=== PATIENT | male | born 1965 | race Caucasian/White ===

== ENCOUNTER 2020-11-21 12:51 | Emergency (ER) | payer OTHER, SELFPAY ==
[2020-11-21 13:15] VITALS: BP 143/89; PULSE 97; RESP 18; TEMP 36.8; O2SAT 97
--- NOTE | 2020-11-21 13:22 | ED.URI ---
HPI - URI/Sore Throat General Chief Complaint: Upper Respiratory Infection Stated Complaint: Sore Throat/Body Aches Time Seen by Provider: 11/21/20 13:24 Source: patient, RN notes reviewed and old records reviewed Mode of arrival: ambulatory Limitations: no limitations History of Present Illness HPI Narrative: 55 year old male who presents to [facility] with complaints of sore scratchy throat for the past 2 days. States his symptoms started after receiving his 2nd COVID vaccination. Patient also states some sinus drainage and congestion, and cough, states history of sinusitis and allergies.He reports that he took 3 of left over Augmentin that he had at home. Patient is immunocompromised with history of Rheumatoid arthritis for which he takes Humira weekly injections. Patient states that he is concerned because he travels frequently and is getting ready to go on business trip next week. He reports that he did have COVID in July of 2020. MD elicited complaint: sore throat Pertinent past history: sinusitis, seasonal allergies and immunosuppression Onset (ago): day(s) (4) Consistency: progressively worsening Severity: moderate Pain scale (0-10): 5 Description of mucous: clear Able to tolerate fluids by mouth: Yes Exacerbating factors: swallowing Relieving factors: nothing Associated symptoms: rhinorrhea, nasal congestion and cough Treatments prior to arrival: antibiotics (3 tabs of left over Augmentin) Related Data Home Medications Medication Instructions Recorded Confirmed adalimumab 10 mg/0.2 mL 10 mg SUB-Q WEEKLY each 07/18/19 subcutaneous syringe kit amlodipine 2.5 mg tablet 2.5 mg PO DAILY 07/18/19 adalimumab [Humira Pen] 40 mg SUBCUT ONCE 11/21/20 11/21/20 alprazolam 11/21/20 amlodipine-benazepril cap 11/21/20 estazolam mg 11/21/20 Allergies Allergy/AdvReac Type Severity Reaction Status Date / Time No Known Drug Allergies Allergy Unknown none Verified 07/18/19 13:59 Review of Systems Review of Systems: Narrative: CONSTITUTIONAL: Denies fever, chills, or sweats. EYES: Denies visual changes, redness, or discharge. ENT: Positive for rhinorrhea, congestion, sore throat, no otalgia. CARDIOVASCULAR: Denies chest pain, palpitations, or edema. RESPIRATORY: Positive cough denies dyspnea. GASTROINTESTINAL: Denies abdominal pain, nausea, vomiting, or diarrhea. GENITOURINARY: Denies dysuria or hematuria. SKIN: Denies rash or itching, has abrasion MUSCULOSKELETAL: Denies back pain,acute joint pain, or myalgia NEUROLOGIC: Denies headache, numbness, or weakness. PSYCHIATRIC: Denies anxiety or depression. All systems reviewed & are unremarkable except as noted in HPI and below PMFSH Past Medical History Medical History (Updated 11/23/20 @ 15:35 by Geraldine Jeffries NP) History of rheumatoid arthritis Hypertension Surgical History Surgical History (Updated 11/21/20 @ 13:43 by Geraldine Jeffries NP) H/O nasal septoplasty History of tonsillectomy and adenoidectomy Family History Family History (Updated 07/18/19 @ 14:01 by Aleena Caraballo) Other Hypertension Social History Social History (Updated 11/23/20 @ 15:35 by Geraldine Jeffries NP) Smoking status: Never smoker Alcohol intake: current Substance use: never Living arrangements: with family Gender identity (if verbalized by the patient): Male Comments At time of signature, agree with nursing past medical, surgical, social and family history. There is no relevant family history pertinent to the presenting complaint Exam Narrative: Exam Narrative: GENERAL: Well-appearing, well-nourished, and in no acute distress. HEAD: Normocephalic, atraumatic. EYES: PERRLA and EOMI. ENT: Nares red with clear rhinorrhea no epistaxis. Mucous membranes moist.TM's normal with good light reflex, throat red with no lesions or exudates, no tonsils, post nasal drainage present NECK: Supple.no lymphadenopathy CHEST: Clear to auscultation. No respiratory distr
== END 2020-11-21 13:45 | disposition home or self-care (01) ==
PROVIDERS: Emergency Provider Registered Nurse; PCP Internal Medicine
DX: J02.9 Acute pharyngitis, unspecified (principal); M06.9 Rheumatoid arthritis, unspecified; I10 Essential (primary) hypertension
CPT/HCPCS: 87081; 87880; 99213; G0463

== ENCOUNTER 2021-03-13 16:10 | Emergency (ER) | payer OTHER, SELFPAY ==
[2021-03-13 16:15] VITALS: BP 146/89; PULSE 85; RESP 16; TEMP 37.1; O2SAT 99
--- NOTE | 2021-03-13 16:55 | ED.EAR ---
HPI - Ear Problem General Chief complaint: Ear Stated complaint: ear pain Time Seen by Provider: 03/13/21 16:45 Source: patient, RN notes reviewed and old records reviewed Mode of arrival: ambulatory Limitations: no limitations History of Present Illness HPI Narrative: 56-year-old male who presents to [facility] with complaints of left ear pain for the past 2 days. Patient states that he has been swimming a lot and has had history of swimmer's ear in the past. Patient states that ear canal is very sore, has not noted any drainage from his left ear. Patient denies any fever, chills or sweats or any sinus congestion. MD Complaint: ear pain Location: left ear Duration: constant Context: Reports recent swimming Discharge from ear: Reports no Associated symptoms ear: rhinorrhea and other (Ear pain) Treatment prior to arrival: none Related Data Home Medications Medication Instructions Recorded Confirmed adalimumab 10 mg/0.2 mL 10 mg SUB-Q WEEKLY each 07/18/19 03/13/21 subcutaneous syringe kit amlodipine 2.5 mg tablet 2.5 mg PO DAILY 07/18/19 03/13/21 adalimumab [Humira Pen] 40 mg SUBCUT ONCE 11/21/20 03/13/21 alprazolam 11/21/20 amlodipine-benazepril cap 11/21/20 estazolam mg 11/21/20 Allergies Allergy/AdvReac Type Severity Reaction Status Date / Time No Known Drug Allergies Allergy Unknown none Verified 03/13/21 16:56 Review of Systems Review of Systems: Narrative: CONSTITUTIONAL: Denies fever, chills, or sweats. EYES: Denies visual changes, redness, or discharge. ENT: Denies rhinorrhea, congestion, sore throat, positive for left otalgia. CARDIOVASCULAR: Denies chest pain, palpitations, or edema. RESPIRATORY: Denies cough or dyspnea. GASTROINTESTINAL: Denies abdominal pain, nausea, vomiting, or diarrhea. GENITOURINARY: Denies dysuria or hematuria. SKIN: Denies rash or itching. MUSCULOSKELETAL: Denies back pain, joint pain, or myalgia. NEUROLOGIC: Denies headache, numbness, or weakness. PSYCHIATRIC: Denies anxiety or depression. All systems reviewed & are unremarkable except as noted in HPI and below PMFSH Past Medical History Medical History (Updated 03/13/21 @ 17:00 by Geraldine Jeffries NP) History of rheumatoid arthritis Hypertension Surgical History Surgical History (Updated 11/21/20 @ 13:43 by Geraldine Jeffries NP) H/O nasal septoplasty History of tonsillectomy and adenoidectomy Family History Family History (Updated 07/18/19 @ 14:01 by Aleena Caraballo) Other Hypertension Social History Social History (Updated 11/23/20 @ 15:35 by Geraldine Jeffries NP) Smoking status: Never smoker Alcohol intake: current Substance use: never Gender identity (if verbalized by the patient): Male Comments At time of signature, agree with nursing past medical, surgical, social and family history. There is no relevant family history pertinent to the presenting complaint Exam Narrative: Exam Narrative: GENERAL: Well-appearing, well-nourished, and in no acute distress. HEAD: Normocephalic, atraumatic. EYES: PERRLA and EOMI. ENT: Nares clear, no rhinorrhea or epistaxis. Mucous membranes moist.Right TM normal with good light reflex, Left TM has good light reflex, canal is red swollen and excoriated with lesion noted mid way in canal NECK: Supple. no lymphadenopathy CHEST: Clear to auscultation. No respiratory distress.SAO2 99% on room air HEART: Regular rate and rhythm. No murmur heard. Normal peripheral pulses. ABDOMEN: Soft, nontender, nondistended, normal active bowel sounds. EXTREMITIES: Normal range of motion. No edema. SKIN: Warm, dry, no rash. NEURO: No focal deficits. Alert and oriented x3. Course Vital Signs Vital signs: Vital Signs Temperature 37.1 C 03/13/21 16:15 Pulse Rate 85 03/13/21 16:15 Respiratory Rate 16 03/13/21 16:15 Blood Pressure 146/89 H 03/13/21 16:15 Pulse Oximetry 99 03/13/21 16:15 Temperature 37.1 C 03/13/21 16:15 Pulse Rate 85 03/13
== END 2021-03-13 17:20 | disposition home or self-care (01) ==
PROVIDERS: Emergency Provider Registered Nurse; PCP Internal Medicine
DX: H60.332 Swimmer's ear, left ear (principal); I10 Essential (primary) hypertension; M06.9 Rheumatoid arthritis, unspecified
CPT/HCPCS: 99213; G0463

== ENCOUNTER 2022-01-22 13:28 | Emergency (ER) | payer OTHER, SELFPAY ==
[2022-01-22 13:36] VITALS: BP 141/84; PULSE 77; RESP 18; TEMP 36.6; O2SAT 98
--- NOTE | 2022-01-22 14:31 | ED.URI ---
HPI - URI/Sore Throat General Chief Complaint: Upper Respiratory Infection Stated Complaint: headache nose and sinus Time Seen by Provider: 01/22/22 14:31 Source: patient Mode of arrival: ambulatory Limitations: no limitations History of Present Illness HPI Narrative: 56-year-old male who presents to [facility] care with complaints of 2 week duration of sinus congestion, sinus pressure, frontal headache, sneezing and occasional dry cough. Patient reports that he has been using Afrin nasal spray to clear his nose that he has been so stuffed up, Flonase not seeming to help and also he has been taking some Advil for his discomfort. Patient denies any known fevers, chills or sweats. Patient has had COVID vaccinations and also flu shot. MD elicited complaint: cough, rhinorrhea (headache), nasal congestion, sinus pain and other (headache) Pertinent past history: sinusitis and other (nasal septal surgery and tonsillectomy) Onset (ago): week(s) (2) Related Data Home Medications Medication Instructions Recorded Confirmed amlodipine 2.5 mg tablet 2.5 mg PO DAILY 07/18/19 01/22/22 adalimumab 40 mg/0.8 mL 40 mg subcut ONCE 11/21/20 03/13/21 subcutaneous pen kit (Humira Pen) alprazolam 0.5 mg tablet 0.5 mg PO DAILY PRN Anxiety 11/21/20 estazolam 2 mg tablet 2 mg PO DAILY 11/21/20 tramadol 50 mg tablet 50 mg PO DAILY 01/22/22 01/22/22 Allergies Allergy/AdvReac Type Severity Reaction Status Date / Time No Known Drug Allergies Allergy Unknown none Verified 01/22/22 14:23 Review of Systems Review of Systems: CONSTITUTIONAL: Denies fever, chills, or sweats. EYES: Denies visual changes, redness, or discharge. ENT: Positive for rhinorrhea, congestion,no sore throat, or otalgia. CARDIOVASCULAR: Denies chest pain, palpitations, or edema. RESPIRATORY: Dry cough denies dyspnea. GASTROINTESTINAL: Denies abdominal pain, nausea, vomiting, or diarrhea. GENITOURINARY: Denies dysuria or hematuria. SKIN: Denies rash or itching. MUSCULOSKELETAL: Denies back pain, joint pain, or myalgia. NEUROLOGIC: Positive for frontal headache, no numbness, or weakness. PSYCHIATRIC: Positive for history of anxiety or depression. PMFSH Past Medical History Medical History (Updated 01/24/22 @ 09:51 by Geraldine Jeffries NP) Anxiety History of rheumatoid arthritis Hypertension Sinusitis Surgical History Surgical History (Updated 11/21/20 @ 13:43 by Geraldine Jeffries NP) H/O nasal septoplasty History of tonsillectomy and adenoidectomy Family History Family History (Updated 07/18/19 @ 14:01 by Aleena Caraballo) Other Hypertension Social History Social History (Updated 01/23/22 @ 22:36 by Geraldine Jeffries NP) Smoking status: Never smoker Alcohol intake: current Substance use: never Living arrangements: with family Gender identity (if verbalized by the patient): Male Comments At time of signature, agree with nursing past medical, surgical, social and family history. There is no relevant family history pertinent to the presenting complaint Exam Narrative: GENERAL: Well-appearing, well-nourished, and in no acute distress. HEAD: Normocephalic, atraumatic. EYES: PERRLA and EOMI. ENT: Nares red and membranes swollen no epistaxis. Mucous membranes moist. TMs normal with good light reflex, throat red with no lesions or exudates, tonsils absent, post nasal drainage. NECK: Supple.no lymphadenopathy CHEST: Clear to auscultation. No respiratory distress.SAO2 98% on room air, dry cough HEART: Regular rate and rhythm. No murmur heard. Normal peripheral pulses. ABDOMEN: Soft, nontender, nondistended, normal active bowel sounds. EXTREMITIES: Normal range of motion. No edema. SKIN: Warm, dry, no rash. NEURO: No focal deficits. Alert and oriented x3. Course Course Level of Care: Express Care Visit Vital Signs Vital signs: Vital Signs Temperature 36.6 C 01/22/22 13:36 Pulse Rate 77 01/22/22 13:36 Respiratory Rate 18 01/22/22 13:36
== END 2022-01-22 14:46 | disposition home or self-care (01) ==
PROVIDERS: Emergency Provider Registered Nurse; PCP Internal Medicine
DX: J32.9 Chronic sinusitis, unspecified (principal); I10 Essential (primary) hypertension; F41.9 Anxiety disorder, unspecified
CPT/HCPCS: 99213; G0463

== ENCOUNTER 2022-09-01 13:59 | Emergency (ER) | payer OTHER, SELFPAY ==
[2022-09-01 14:03] VITALS: BP 146/86; PULSE 76; RESP 16; TEMP 36.7; O2SAT 97
--- NOTE | 2022-09-01 14:10 | ED.URI ---
HPI - URI/Sore Throat General Chief Complaint: Upper Respiratory Infection Stated Complaint: sore throat Time Seen by Provider: 09/01/22 14:05 Source: patient and RN notes reviewed History of Present Illness HPI Narrative: Patient is a 57-year-old male who presents to urgent care with complaints of sore throat, runny nose and cough for 2 days. Patient states that he has been using NyQuil for symptoms as well as a humidifier at night. Denies any fever, nausea or vomiting. No other acute complaints. No acute distress noted. Patient aware of the plan of care. Some parts of this dictation were generated by voice recognition software and may contain typographical and/or grammatical inaccuracies. Related Data Home Medications Medication Instructions Recorded Confirmed adalimumab 40 mg/0.8 mL 40 mg subcut ONCE 11/21/20 03/13/21 subcutaneous pen kit (Humira Pen) alprazolam 0.5 mg tablet 0.5 mg PO DAILY PRN Anxiety 11/21/20 estazolam 2 mg tablet 2 mg PO DAILY 11/21/20 amlodipine 10 mg-benazepril 20 mg 1 cap PO DAILY 09/01/22 09/01/22 capsule metoprolol tartrate 25 mg tablet 25 mg PO BID 09/01/22 09/01/22 Allergies Allergy/AdvReac Type Severity Reaction Status Date / Time No Known Drug Allergies Allergy Unknown none Verified 09/01/22 14:10 Review of Systems Review of Systems: CONSTITUTIONAL: Denies fever, chills, or sweats. EYES: Denies visual changes, redness, or discharge. ENT: Reports rhinorrhea, sore throat CARDIOVASCULAR: Denies chest pain, palpitations, or edema. RESPIRATORY: reports of cough GASTROINTESTINAL: Denies abdominal pain, nausea, vomiting, or diarrhea. GENITOURINARY: Denies dysuria or hematuria. SKIN: Denies rash or itching. MUSCULOSKELETAL: Denies back pain, joint pain, or myalgia. NEUROLOGIC: Denies headache, numbness, or weakness. All other systems reviewed are negative, except as documented in HPI. [facility] Past Medical History Medical History (Updated 09/01/22 @ 14:21 by ANALI Mcclure) Anxiety History of rheumatoid arthritis Hypertension Sinusitis Surgical History Surgical History (Updated 11/21/20 @ 13:43 by Geraldine Jeffries NP) H/O nasal septoplasty History of tonsillectomy and adenoidectomy Family History Family History (Updated 07/18/19 @ 14:01 by Aleena Caraballo) Other Hypertension Social History Social History (Updated 01/23/22 @ 22:36 by Geraldine Jeffries NP) Smoking status: Never smoker Alcohol intake: current Substance use: never Gender identity (if verbalized by the patient): Male Comments At the time of my signature, I reviewed and agree with the nursing past medical, surgical, social, and family history. There is no relevant family history pertinent to the patient complaint. Exam Narrative: GENERAL: This is a well-nourished, well-developed patient, in no apparent distress. HEAD: normocephalic, atraumatic. EYES: PERRL. Sclera clear/white. Vision is grossly intact. EARS: External ears normal, auditory canals clear and without drainage, TMs normal without perforation. Hearing grossly intact. NOSE: External nose normal with no obvious nasal discharge, nares without redness, Clear rhinorrhea. THROAT: Mucous membranes moist. mild erythema to posterior pharynx with moderate postnasal drainage. NECK: Neck supple, non-tender without lymphadenopathy CARDIOVASCULAR: Regular rate and rhythm without murmurs, gallops, or rubs. RESPIRATORY: Clear to auscultation. Breath sounds equal bilaterally. No wheezes, rales, or rhonchi. SKIN: warm, intact with no suspicious lesions or rash, good texture and turgor. NEURO: awake, alert, and oriented to person, place and time. There were no obvious focal neurologic abnormalities. EXTREMITIES: No clubbing, cyanosis, or edema. Course Course Level of Care: Express Care Visit Vital Signs Vital signs: Vital Signs Temperature 98.1 F 09/01/22 14:03 Pulse Rate 76 09/01/22 14:03 Respiratory Ra
== END 2022-09-01 14:27 | disposition home or self-care (01) ==
PROVIDERS: Emergency Provider Nurse Practitioner Family; PCP Internal Medicine
DX: J02.9 Acute pharyngitis, unspecified (principal); I10 Essential (primary) hypertension; M06.9 Rheumatoid arthritis, unspecified; F41.9 Anxiety disorder, unspecified
CPT/HCPCS: 87081; 87880; 99213; G0463

== ENCOUNTER 2022-11-18 13:39 | Emergency (ER) | payer OTHER, SELFPAY ==
[2022-11-18 13:49] VITALS: BP 137/87; PULSE 82; RESP 14; TEMP 36.6; O2SAT 99
--- NOTE | 2022-11-18 13:58 | ED.URI ---
HPI - URI/Sore Throat General Stated Complaint: Ear Pain Time Seen by Provider: 11/18/22 13:59 Source: patient, RN notes reviewed and old records reviewed Mode of arrival: ambulatory Limitations: no limitations History of Present Illness HPI Narrative: 57-year-old male who presents to [facility] with ear pain MD elicited complaint: cough and sore throat Related Data Home Medications Medication Instructions Recorded Confirmed adalimumab 40 mg/0.8 mL 40 mg subcut ONCE 11/21/20 09/01/22 subcutaneous pen kit (Humira Pen) alprazolam 0.5 mg tablet 0.5 mg PO DAILY PRN Anxiety 11/21/20 09/01/22 estazolam 2 mg tablet 2 mg PO DAILY 11/21/20 09/01/22 amlodipine 10 mg-benazepril 20 mg 1 cap PO DAILY 09/01/22 09/01/22 capsule metoprolol tartrate 25 mg tablet 25 mg PO BID 09/01/22 09/01/22 Allergies Allergy/AdvReac Type Severity Reaction Status Date / Time No Known Drug Allergies Allergy Unknown none Verified 09/01/22 14:10 Review of Systems Review of Systems: CONSTITUTIONAL: Denies malaise, chills, sweats, or fever. EYES: Denies visual changes, redness, or discharge. ENT: Reports rhinorrhea, congestion, sinus pain, otalgia and sore throat. CARDIOVASCULAR: Denies chest pain, palpitations, or edema. RESPIRATORY: Reports cough.? Denies dyspnea. GASTROINTESTINAL: Denies abdominal pain, nausea, vomiting, diarrhea SKIN: Denies rash or itching. MUSCULOSKELETAL: Denies myalgia. NEUROLOGIC: Denies headache. All systems reviewed & are unremarkable except as noted in HPI and below PMFSH Past Medical History Medical History Anxiety History of rheumatoid arthritis Hypertension Sinusitis Surgical History Surgical History H/O nasal septoplasty History of tonsillectomy and adenoidectomy Family History Family History Other Hypertension Social History Social History Smoking status: Never smoker Alcohol intake: current Substance use: never Living arrangements: with family Gender identity (if verbalized by the patient): Male Comments At time of signature, agree with nursing past medical, surgical, social and family history. There is no relevant family history pertinent to the presenting complaint Exam Narrative: GENERAL: Well-appearing, well-nourished, and in no acute distress. HEAD: Normocephalic EYES: PERRLA, conjunctivae clear ENT: Nares clear, turbinates edematous and erythematous, clear discharge. Mucous membranes moist. TM pearly vargas with dull light reflex bilaterally; no tragal tenderness. Oropharynx erythematous without lesions. Tonsils not enlarged and without exudate, no drooling, no hoarseness, no trismus, uvula midline. NECK: Supple. No lymphadenopathy CHEST: Clear to auscultation, breath sounds equal. No wheezing, rhonchi, rales, or stridor. No respiratory distress, speaks in full sentences. HEART: Regular rate and rhythm. No murmur heard. SKIN: Warm, dry, no rash. NEURO: Alert and oriented x3. PSYCH: Normal mood and affect Course Course Emergency Course: Patient is aware of diagnosis, understands and agrees to treatment plan.? Anticipatory guidance given.? Patient agrees to follow-up as directed and is aware of reasons to seek care at the emergency department. Portions of this record may have been created with voice recognition software Level of Care: Express Care Visit Vital Signs Vital signs: Vital Signs Temperature 36.6 C 11/18/22 13:49 Pulse Rate 82 11/18/22 13:49 Respiratory Rate 14 11/18/22 13:49 Blood Pressure 137/87 11/18/22 13:49 Pulse Oximetry 99 11/18/22 13:49 Oxygen Delivery Room Air 11/18/22 13:49 Temperature 36.6 C 11/18/22 13:49 Pulse Rate 82 11/18/22 13:49 Respiratory Rate 14 11/18/22
--- NOTE | 2022-11-18 14:17 | ED.URI ---
HPI - URI/Sore Throat General Chief Complaint: Upper Respiratory Infection Stated Complaint: Ear Pain Time Seen by Provider: 11/18/22 13:59 Source: patient, RN notes reviewed and old records reviewed Mode of arrival: ambulatory Limitations: no limitations History of Present Illness HPI Narrative: 57-year-old male who presents to [facility] with complaints of bilateral ear pain, postnasal drainage, sinus pressure with drainage, and sore throat for 3 days. Patient reports that he has worsening left ear pain and some milder right ear pain. Patient has history of chronic sinus problems with previous sinus surgery and past ear infections. Patient takes daily antihistamine, uses sinus water flushes 2Xweek, takes daily Nasacort nasal spray,and has been taking Advil for his discomfort. Patient reports that he has not had any fevers or chills, denies any acute cough MD elicited complaint: sore throat, rhinorrhea, nasal congestion, sinus pain and other (ear pain) Pertinent past history: sinusitis and seasonal allergies Onset (ago): day(s) (3) Pain scale (0-10): 7 Able to tolerate fluids by mouth: Yes Treatments prior to arrival: ibuprofen and other (sinus flush, Nasacort, antihistamine) Related Data Home Medications Medication Instructions Recorded Confirmed adalimumab 40 mg/0.8 mL 40 mg subcut ONCE 11/21/20 11/18/22 subcutaneous pen kit (Humira Pen) alprazolam 0.5 mg tablet 0.5 mg PO DAILY PRN Anxiety 11/21/20 11/18/22 estazolam 2 mg tablet 2 mg PO DAILY 11/21/20 11/18/22 amlodipine 10 mg-benazepril 20 mg 1 cap PO DAILY 09/01/22 11/18/22 capsule metoprolol tartrate 25 mg tablet 25 mg PO BID 09/01/22 11/18/22 Allergies Allergy/AdvReac Type Severity Reaction Status Date / Time No Known Drug Allergies Allergy Unknown none Verified 09/01/22 14:10 Review of Systems Review of Systems: CONSTITUTIONAL: Denies malaise, chills, sweats, or fever. EYES: Denies visual changes, redness, or discharge. ENT: Reports rhinorrhea, congestion, sinus pain,bilateral otalgia and sore throat. CARDIOVASCULAR: Denies chest pain, palpitations, or edema. RESPIRATORY: Reports no cough.? Denies dyspnea. GASTROINTESTINAL: Denies abdominal pain, nausea, vomiting, diarrhea SKIN: Denies rash or itching. MUSCULOSKELETAL: Denies myalgia. NEUROLOGIC: Denies headache. All systems reviewed & are unremarkable except as noted in HPI and below PMFSH Past Medical History Medical History Anxiety History of rheumatoid arthritis Hypertension Sinusitis Surgical History Surgical History H/O nasal septoplasty History of tonsillectomy and adenoidectomy Family History Family History Other Hypertension Social History Social History Smoking status: Never smoker Alcohol intake: current Substance use: never Living arrangements: with family Gender identity (if verbalized by the patient): Male Comments At time of signature, agree with nursing past medical, surgical, social and family history. There is no relevant family history pertinent to the presenting complaint Exam Narrative: GENERAL: Well-appearing, well-nourished, and in no acute distress. HEAD: Normocephalic EYES: PERRLA, conjunctivae clear ENT: Nares clear, turbinates edematous and erythematous, clear yellow discharge. Mucous membranes moist. Left TM red, Right TM pearly vargas with dull light reflex bilaterally; no tragal tenderness. Oropharynx erythematous without lesions. Tonsils not present and throat without exudate, no drooling, no hoarseness, no trismus, uvula midline.post nasal drainage NECK: Supple. No lymphadenopathy CHEST: Clear to auscultation, breath sounds equal. No wheezing, rhonchi, rales, or stridor. No respiratory distress, speaks in ful
== END 2022-11-18 14:30 | disposition home or self-care (01) ==
PROVIDERS: Emergency Provider Registered Nurse; PCP Internal Medicine
DX: J32.9 Chronic sinusitis, unspecified (principal); H66.92 Otitis media, unspecified, left ear; M06.9 Rheumatoid arthritis, unspecified; I10 Essential (primary) hypertension
CPT/HCPCS: 99213; G0463

== ENCOUNTER 2022-11-30 11:44 | Emergency (ER) | payer OTHER, SELFPAY ==
[2022-11-30 11:50] VITALS: BP 131/86; PULSE 64; RESP 18; TEMP 36.6; O2SAT 98
--- NOTE | 2022-11-30 12:04 | ED.SKABFB ---
HPI - Skin/Abscess/Foreign Bdy General Chief complaint: Skin/Abscess/Foreign Body Stated complaint: Rash Time Seen by Provider: 11/30/22 12:05 Source: patient, RN notes reviewed and old records reviewed Mode of arrival: ambulatory Limitations: no limitations History of Present Illness HPI narrative: 57 year old male who presents to [facility] care with complaints of rash noted to left arm, right chest,right arm and itching to his right ankle which started last night. Patient has scattered red pruritic rash no vesicles noted or drainage states is spreading. Patient reports that he was mowing yesterday and states he did shower after mowing. Patient has used hydrocortisone ointment to rash. MD complaint: rash Onset (ago): day(s) (last night rash noted) Quality: pruritic Treatments prior to arrival: other (hydrocortisone) Related Data Home Medications Medication Instructions Recorded Confirmed adalimumab 40 mg/0.8 mL 40 mg subcut ONCE 11/21/20 11/30/22 subcutaneous pen kit (Humira Pen) alprazolam 0.5 mg tablet 0.5 mg PO DAILY PRN Anxiety 11/21/20 11/30/22 estazolam 2 mg tablet 2 mg PO DAILY 11/21/20 11/30/22 amlodipine 10 mg-benazepril 20 mg 1 cap PO DAILY 09/01/22 11/30/22 capsule metoprolol tartrate 25 mg tablet 25 mg PO BID 09/01/22 11/30/22 Allergies Allergy/AdvReac Type Severity Reaction Status Date / Time No Known Drug Allergies Allergy Unknown none Verified 11/30/22 11:56 Review of Systems Review of Systems: CONSTITUTIONAL: Denies fever, chills, or sweats. CARDIOVASCULAR: Denies chest pain, palpitations, or edema. RESPIRATORY: Denies cough or dyspnea. SKIN: Reports red raised rash to left arm chest and right arm with itching and itchy area to right ankle MUSCULOSKELETAL: Denies joint pain or myalgia. NEUROLOGIC: Denies headache, numbness, or weakness. All systems reviewed & are unremarkable except as noted in HPI and below PMFSH Past Medical History Medical History Anxiety History of rheumatoid arthritis Hypertension Sinusitis Surgical History Surgical History H/O nasal septoplasty History of tonsillectomy and adenoidectomy Family History Family History Other Hypertension Social History Social History Smoking status: Never smoker Alcohol intake: current Substance use: never Living arrangements: with family Gender identity (if verbalized by the patient): Male Comments At time of signature, agree with nursing past medical, surgical, social and family history. There is no relevant family history pertinent to the presenting complaint Exam Narrative: GENERAL: Well-appearing, well-nourished, and in no acute distress. HEAD: Normocephalic, atraumatic. EYES: PERRLA, conjunctivae clear, and EOMI. ENT: Mucous membranes moist. Oropharynx without edema, erythema or lesions. NECK: Supple. No lymphadenopathy CHEST: Clear to auscultation. No respiratory distress.SAO2 98% on room air HEART: Regular rate and rhythm. SKIN: Warm, dry.? Patches of erythema and pruritis to left arm,right arm and chest and itchy area to right ankle no drainage or vesicles is spreading patient reports NEURO:? Alert and oriented PSYCH: Normal mood and affect Course Course Emergency Course: Patient is aware of diagnosis, understands and agrees to treatment plan.? Anticipatory guidance given.? Patient agrees to follow-up as directed and is aware of reasons to seek care at the emergency department. Portions of this record may have been created with voice recognition software Level of Care: Express Care Visit Vital Signs Vital signs: Vital Signs Temperature 36.6 C 11/30/22 11:50 Pulse Rate 64 11/30/22 11:50 Respiratory Rate 18 11/30/22 11:50 Blood Pressure 131/86 11/30
== END 2022-11-30 12:26 | disposition home or self-care (01) ==
PROVIDERS: Emergency Provider Registered Nurse; PCP Internal Medicine
DX: L25.9 Unspecified contact dermatitis, unspecified cause (principal); F41.9 Anxiety disorder, unspecified; M06.9 Rheumatoid arthritis, unspecified; I10 Essential (primary) hypertension
CPT/HCPCS: 99213; G0463

== ENCOUNTER 2023-04-20 15:44 | Emergency (ER) | payer OTHER, SELFPAY ==
[2023-04-20 15:49] VITALS: BP 128/85; PULSE 72; RESP 16; TEMP 36.4; O2SAT 98
--- NOTE | 2023-04-20 16:10 | ED.SKABFB ---
HPI - Skin/Abscess/Foreign Bdy General Chief complaint: Skin/Abscess/Foreign Body Stated complaint: Rash Time Seen by Provider: 04/20/23 16:11 Source: patient Mode of arrival: ambulatory Limitations: no limitations History of Present Illness HPI narrative: 58 year old male presents to [facility] care with complaints of rash to his legs, arms and upper back since Tuesday which is itchy. Patient reports that he has worked in his yard and he has been traveling for work unsure what he was exposed to that has caused rash. Patient reports that he has taken some Benadryl for the itching. Patient reports that he has not had difficulty with his breathing or swallowing, reports that no one else in household has rash. MD complaint: rash Onset (ago): day(s) (2) Location: back (upper), LUE, RUE, LLE and RLE Treatments prior to arrival: Benadryl Related Data Home Medications Medication Instructions Recorded Confirmed adalimumab 40 mg/0.8 mL 40 mg subcut ONCE 11/21/20 11/30/22 subcutaneous pen kit (Humira Pen) alprazolam 0.5 mg tablet 0.5 mg PO DAILY PRN Anxiety 11/21/20 11/30/22 estazolam 2 mg tablet 2 mg PO DAILY 11/21/20 11/30/22 amlodipine 10 mg-benazepril 20 mg 1 cap PO DAILY 09/01/22 11/30/22 capsule metoprolol tartrate 25 mg tablet 25 mg PO BID 09/01/22 11/30/22 Allergies Allergy/AdvReac Type Severity Reaction Status Date / Time No Known Drug Allergies Allergy Unknown none Verified 11/30/22 11:56 Review of Systems Review of Systems: CONSTITUTIONAL: Denies fever, chills, or sweats. CARDIOVASCULAR: Denies chest pain, palpitations, or edema. RESPIRATORY: Denies cough or dyspnea. SKIN: Reports scattered areas of small red raised bumps on legs, arms and upper back. MUSCULOSKELETAL: Denies joint pain or myalgia. NEUROLOGIC: Denies headache, numbness, or weakness. All systems reviewed & are unremarkable except as noted in HPI and below PMFSH Past Medical History Medical History Anxiety History of rheumatoid arthritis Hypertension Sinusitis Surgical History Surgical History H/O nasal septoplasty History of tonsillectomy and adenoidectomy Family History Family History Other Hypertension Social History Social History Smoking status: Never smoker Alcohol intake: current Substance use: never Living arrangements: with family Gender identity (if verbalized by the patient): Male Comments At time of signature, agree with nursing past medical, surgical, social and family history. There is no relevant family history pertinent to the presenting complaint Exam Narrative: GENERAL: Well-appearing, well-nourished, and in no acute distress. HEAD: Normocephalic, atraumatic. EYES: PERRLA, conjunctivae clear, and EOMI. ENT: Mucous membranes moist. Oropharynx without edema, erythema or lesions. NECK: Supple. No lymphadenopathy CHEST: Clear to auscultation. No respiratory distress.SAO2 98% n room air HEART: Regular rate and rhythm. SKIN: Warm, dry.?Scattered areas of small red raised bumps on legs, arms and upper back which are itchy, no pustule formation or drainage NEURO:? Alert and oriented x3. PSYCH: Normal mood and affect Course Course Emergency Course: Patient is aware of diagnosis, understands and agrees to treatment plan.? Anticipatory guidance given.? Patient agrees to follow-up as directed and is aware of reasons to seek care at the emergency department. Portions of this record may have been created with voice recognition software Level of Care: Express Care Visit Vital Signs Vital signs: Vital Signs Temperature 36.4 C 04/20/23 15:49 Pulse Rate 72 04/20/23 15:49 Respiratory Rate 16 04/20/23 15:49 Blood Pressure 128/85 04/20/23 15:49 Puls
== END 2023-04-20 16:28 | disposition home or self-care (01) ==
PROVIDERS: Emergency Provider Registered Nurse; PCP Internal Medicine
DX: L25.9 Unspecified contact dermatitis, unspecified cause (principal); F41.9 Anxiety disorder, unspecified; M06.9 Rheumatoid arthritis, unspecified; I10 Essential (primary) hypertension
CPT/HCPCS: 99213; G0463

== ENCOUNTER 2023-10-01 18:36 | Emergency (ER) | payer OTHER, MEDICAID, SELFPAY ==
[2023-10-01 18:45] VITALS: BP 129/84; PULSE 116; RESP 20; TEMP 39.1; O2SAT 98
--- NOTE | 2023-10-01 18:54 | ED.URI ---
HPI - URI/Sore Throat General Chief Complaint: Upper Respiratory Infection Stated Complaint: fever/throat/chest congestion Time Seen by Provider: 10/01/23 18:54 Source: patient Mode of arrival: ambulatory Limitations: no limitations History of Present Illness HPI Narrative: 58 year male presents to [facility] care with complaints of fever, chills, body aches, cough, since yesterday. 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 Patient is on Humira for arthritis and takes Meloxicam as needed for arthritis . He has been taking Tylenol for his fevers. which he reports got up to 103F last evening. Patient denies any shortness of breath or any nausea vomiting or diarrhea. MD elicited complaint: fever, cough, sore throat, rhinorrhea, nasal congestion and other (body aches,left ear pain) Pertinent past history: seasonal allergies, immunosuppression and other (sinusitis, ear infection) Onset (ago): day(s) (day 2 of symptoms) Pain scale (0-10): 8 Description of mucous: yellow Able to tolerate fluids by mouth: Yes Treatments prior to arrival: acetaminophen Related Data Home Medications Medication Instructions Recorded Confirmed adalimumab 40 mg/0.8 mL 40 mg subcut ONCE 11/21/20 11/30/22 subcutaneous pen kit (Humira Pen) alprazolam 0.5 mg tablet 0.5 mg PO DAILY PRN Anxiety 11/21/20 11/30/22 estazolam 2 mg tablet 2 mg PO DAILY 11/21/20 11/30/22 amlodipine 10 mg-benazepril 20 mg 1 cap PO DAILY 09/01/22 11/30/22 capsule metoprolol tartrate 25 mg tablet 25 mg PO BID 09/01/22 11/30/22 cetirizine 10 mg tablet mg 10/01/23 meloxicam 15 mg tablet mg 10/01/23 sildenafil 100 mg tablet mg 10/01/23 Allergies Allergy/AdvReac Type Severity Reaction Status Date / Time No Known Drug Allergies Allergy Unknown none Verified 10/01/23 18:41 Review of Systems Review of Systems: CONSTITUTIONAL: Reports malaise, chills, sweats, or fever. EYES: Denies visual changes, redness, or discharge. ENT: Reports rhinorrhea, congestion, sinus pain,left otalgia and sore throat. CARDIOVASCULAR: Denies chest pain, palpitations, or edema. RESPIRATORY: Reports cough.? Denies dyspnea. GASTROINTESTINAL: Denies abdominal pain, nausea, vomiting, diarrhea SKIN: Denies rash or itching. MUSCULOSKELETAL: REports myalgia. NEUROLOGIC:Reports headache. All systems reviewed & are unremarkable except as noted in HPI and below PMFSH Past Medical History Medical History Anxiety History of rheumatoid arthritis Hypertension Sinusitis Surgical History Surgical History H/O nasal septoplasty History of tonsillectomy and adenoidectomy Family History Family History Other Hypertension Social History Social History Smoking status: Never smoker Alcohol intake: current Substance use: never Living arrangements: with family Gender identity (if verbalized by the patient): Male Comments At time of signature, agree with nursing past medical, surgical, social and family history. There is no relevant family history pertinent to the presenting complaint Exam Narrative: GENERAL: Illl-appearing, well-nourished, and in no acute distress. HEAD: Normocephalic EYES: PERRLA, conjunctivae clear ENT: Nares clear, turbinates edematous and erythematous, yellow discharge. Mucous membranes moist.Left TM red and bulging,Right TM pearly vargas with dull light reflex; no tragal tenderness. Oropharynx erythematous without lesions. Tonsils not present and throat without exudate, no drooling, no hoarseness, no trismus, uvula midline.Post nasal drainage NECK: Supple. No lymphadenopathy CHEST: Clear to auscultation, breath sounds equal. No wheezing, rhonchi, rales, or stridor. No respiratory distress, speaks in full sentences.cough,SAO2 9
== END 2023-10-01 19:35 | disposition home or self-care (01) ==
PROVIDERS: Emergency Provider Registered Nurse; PCP Internal Medicine
DX: J32.9 Chronic sinusitis, unspecified (principal); H66.92 Otitis media, unspecified, left ear; Z20.822 Contact with and (suspected) exposure to COVID-19; F41.9 Anxiety disorder, unspecified; M06.9 Rheumatoid arthritis, unspecified; I10 Essential (primary) hypertension
CPT/HCPCS: 87081; 87426; 87804; 87880; 99213; G0463

== ENCOUNTER 2024-05-09 15:48 | Emergency (ER) | payer OTHER, SELFPAY ==
--- NOTE | 2024-05-09 16:00 | ED.URI ---
HPI - URI/Sore Throat General Chief Complaint: Upper Respiratory Infection Stated Complaint: Sore Throat/Fatigue Time Seen by Provider: 05/09/24 16:05 Source: patient and RN notes reviewed Mode of arrival: ambulatory Limitations: no limitations History of Present Illness HPI Narrative: 59-year-old male presents concern for body aches, dry eyes, sore throat. Reports he has been taking NyQuil and Advil without relief. He reports history of RA was recently switched to Xeljanz. MD elicited complaint: sore throat and other (fatigue) Related Data Home Medications Medication Instructions Recorded Confirmed adalimumab 40 mg/0.8 mL 40 mg subcut ONCE 11/21/20 11/30/22 subcutaneous pen kit (Humira Pen) alprazolam 0.5 mg tablet 0.5 mg PO DAILY PRN Anxiety 11/21/20 11/30/22 estazolam 2 mg tablet 2 mg PO DAILY 11/21/20 11/30/22 amlodipine 10 mg-benazepril 20 mg 1 cap PO DAILY 09/01/22 11/30/22 capsule metoprolol tartrate 25 mg tablet 25 mg PO BID 09/01/22 11/30/22 cetirizine 10 mg tablet mg 10/01/23 meloxicam 15 mg tablet mg 10/01/23 sildenafil 100 mg tablet mg 10/01/23 diclofenac sodium 75 mg mg PO 05/09/24 tablet,delayed release prednisone 5 mg tablet mg 05/09/24 tofacitinib 11 mg tablet,extended mg PO 05/09/24 release 24 hr (Xeljanz XR) Allergies Allergy/AdvReac Type Severity Reaction Status Date / Time No Known Drug Allergies Allergy Unknown none Verified 10/01/23 18:41 Review of Systems Review of Systems: CONSTITUTIONAL: Reports malaise, fatigue. Denies chills, sweats, or fever. EYES: Denies visual changes, redness, or discharge. ENT: Denies rhinorrhea, congestion, sinus pain, otalgia. Reports sore throat. CARDIOVASCULAR: Denies chest pain, palpitations, or edema. RESPIRATORY: Denies cough. Denies dyspnea. GASTROINTESTINAL: Denies abdominal pain, nausea, vomiting, diarrhea SKIN: Denies rash or itching. MUSCULOSKELETAL: Denies myalgia. NEUROLOGIC: Denies headache. All systems reviewed & are unremarkable except as noted in HPI and below PMFSH Past Medical History Medical History Anxiety History of rheumatoid arthritis Hypertension Sinusitis Surgical History Surgical History H/O nasal septoplasty History of tonsillectomy and adenoidectomy Family History Family History Other Hypertension Social History Social History Smoking status: Never smoker Alcohol intake: current Substance use: never Living arrangements: with family Gender identity (if verbalized by the patient): Male Comments At time of signature, agree with nursing past medical, surgical, social and family history. There is no relevant family history pertinent to the presenting complaint Exam Narrative: GENERAL: Well-appearing, well-nourished, and in no acute distress. HEAD: Normocephalic EYES: PERRLA, conjunctivae clear ENT: Nares clear, turbinates edematous and erythematous, clear discharge. Mucous membranes moist. TM pearly vargas with dull light reflex bilaterally; no tragal tenderness. Oropharynx not erythematous without lesions. Tonsils not enlarged and without exudate, no drooling, no hoarseness, no trismus, uvula midline. NECK: Supple. No lymphadenopathy CHEST: Clear to auscultation, breath sounds equal. No wheezing, rhonchi, rales, or stridor. No respiratory distress, speaks in full sentences. HEART: Regular rate and rhythm. No murmur heard. SKIN: Warm, dry, no rash. NEURO: Alert and oriented x3. PSYCH: Normal mood and affect Course Course Emergency Course: Patient is aware of diagnosis, understands and agrees to treatment plan. Anticipatory guidance given. Patient agrees to follow-up as directed and is aware of reasons to seek care at the emergency department. Portions of this
[2024-05-09 16:02] VITALS: BP 136/90; PULSE 77; RESP 16; TEMP 36.3; O2SAT 98
[2024-05-09 16:24] LABS: EDSTREPNEGPOS1 Negative (Negative)
[2024-05-09 16:32] LABS: EDCOVIDSCREEN Negative (Negative)
== END 2024-05-09 16:51 | disposition home or self-care (01) ==
PROVIDERS: Emergency Provider Nurse Practitioner; PCP Internal Medicine
DX: B34.9 Viral infection, unspecified (principal); F41.9 Anxiety disorder, unspecified; M06.9 Rheumatoid arthritis, unspecified; I10 Essential (primary) hypertension; Z20.822 Contact with and (suspected) exposure to COVID-19
CPT/HCPCS: 87081; 87635; 87880; 99213; G0463